=== PATIENT | female | born 1995 | race Two or more races ===

== ENCOUNTER 2016-09-17 18:25 | Inpatient (IN) | payer SELFPAY ==
[~2016-09-17] VITALS: Ht 152.4 cm; Wt 58.1 kg
[~2016-09-17 18:25] MED LIST: IV NORMAL SALINE 1000ML BAG 1,000 ML IV ONE
[2016-09-17 18:52] LABS: BILIRUBIN,URINE NEGATIVE (NEG); GLUCOSE,URINE NEGATIVE (NEG); NITRITE,URINE NEGATIVE (NEG); PH,URINE 5.5; PROTEIN,URINE 30 mg/dL (NEG-TRACE); UROBILINOGEN,URINE 0.2 mg/dL (0.2 mg/dL)
[2016-09-17] MEDS ORDERED: IOHEXOL 300 MG/ML 75 ML VIAL IV ONE (19:00)
[2016-09-17] MEDS ORDERED: ONDANSETRON PF 4 MG/2 ML VIAL. IV ONE (19:15)
[2016-09-17] MEDS ORDERED: CONTRAST GIVEN MC PRN (19:15)
[2016-09-17] MEDS ORDERED: KETOROLAC 15 MG/ML VIAL. IV ONE (19:15)
[2016-09-17] MEDS ORDERED: IV NORMAL SALINE 1000ML BAG 1,000 ML IV ONE (19:15)
[2016-09-17 19:20] LABS: BASO % 0 % (0-3); EOS % 1 % (0-3); HEMATOCRIT 36.9 % (36.0-47.0); HEMOGLOBIN 12.4 g/dL (12.0-15.5); LYMPH # 2.4 x10^3/uL (1.0-4.8); LYMPH % 18 % (24-48); MEAN CORPUSCULAR HEMOGLOBIN 30 pg (25-35); MEAN CORPUSCULAR HGB CONC 34 g/dL (31-37); MEAN CORPUSCULAR VOLUME 90 fL (79-100); MONO % 7 % (0-9); NEUT % 73 % (31-73); PLATELET COUNT 289 x10^3/uL (140-400); RED BLOOD COUNT 4.12 x10^6/uL (3.50-5.40); RED CELL DISTRIBUTION WIDTH 12.9 % (11.5-14.5); WHITE BLOOD COUNT 13.4 x10^3/uL (4.0-11.0)
[2016-09-17 19:22] LABS: BACTERIA,URINE FEW /HPF (0-FEW); RBC,URINE TNTC /HPF (0-2); SQUAMOUS EPITHELIAL CELL,UR FEW /LPF
[2016-09-17 19:33] LABS: CALCIUM 9.2 mg/dL (8.5-10.1); CREATININE 0.6 mg/dL (0.6-1.0); GFR 127.5; POTASSIUM 3.9 mmol/L (3.5-5.1)
[2016-09-17 19:39] LABS: ALBUMIN 4.4 g/dL (3.4-5.0); ALBUMIN/GLOBULIN RATIO 1.6 (1.0-1.7); TOTAL BILIRUBIN 0.3 mg/dL (0.2-1.0); TOTAL PROTEIN 7.2 g/dL (6.4-8.2)
[2016-09-17] MEDS ORDERED: ALTEPLASE 2 MG VIAL INT CAT ONE (20:00)
[2016-09-17] MEDS ORDERED: HEPARIN SODIUM 5,000 UNIT in IV NORMAL SALINE 500ML BAG 500 ML IRR ONE (20:00)
--- NOTE | 2016-09-17 20:19 | RAD ---
OB ultrasound dated 09/17/2016. No comparison available. Clinical indication: Right lower quadrant pain for 3 weeks increasing today. Bleeding. FINDINGS: Transabdominal and transvaginal imaging performed. Uterus measures 8.7 x 5.5 x 4.6 cm. No gestational sac, pole or yolk sac at this time. Endometrial complex is within normal limits in thickness measuring up to 4 mm. There is a hyperechoic mass at the right adnexa that appears to be separate from the right ovary that measures up to 3.9 cm in size. This shows some internal color flow and peripheral color flow. The right ovary measures 2.9 x 2.9 x 1.9 cm. The left ovary measures 2.6 x 2.1 x 2.7 cm. No left adnexal mass. There is a moderate amount of free fluid in the pelvis. IMPRESSION: 1. No evidence of gestational sac or pole within the endometrial canal. 2. Complex somewhat hypervascular mass at the right adnexa, separate from the right ovary with associated moderate amount of free fluid. If there is positive hCG values, this could represent an ectopic . Recommend clinical correlation 3. Normal sonographic appearance of the ovaries. Results discussed with ER physician at approximately 8:15 PM on the day of the exam. Electronically signed by: Lorenzo Telles MD (09/17/2016 8:16 PM) [id number]
[2016-09-17] MEDS ORDERED: ONDANSETRON PF 4 MG/2 ML VIAL. IV PRN ×2 (20:30→22:00)
[2016-09-17] MEDS ORDERED: IV NORMAL SALINE 1000ML BAG 1,000 ML IV SCH (20:30)
[2016-09-17] MEDS: fentaNYL PF VIAL 100 MCG/2 ML VIAL IV PRN ×2 (20:38→22:58)
--- NOTE | 2016-09-17 21:04 | PHYS DOC ---
Past Medical History Past Medical History: No Pertinent History Past Surgical History: No Surgical History Alcohol Use: None Drug Use: None Adult General Chief Complaint Chief Complaint: ABDOMINAL PAIN HPI HPI Patient is a 20 year old female who presents here today complaining of feeling sick for approximately 3 weeks. Patient reports that she's had vaginal bleeding for approximately 3 weeks now utilizing partially 3 pads per day. Patient has any nausea vomiting or diarrhea. Patient complains of dysuria but no frequency or urgency. Patient has any fevers shakes chills. Patient denies any sore throat or ear pain. Patient has any cough cold or runny nose. Patient is complaining of tenderness and pain to her abdomen Ted right lower quadrant. Patient denies any history of tubal pregnancies in the past. Patient denies any history of hypertension diabetes liver longer kidney problems. Patient has had no surgeries in the past. Patient does not smoke drink or do any drugs. Patient is not allergic to any medications. Patient reports port that her last period started on August 28 however she has been bleeding since. Review of systems: Constitutional: Denies fever or chills Eyes: Denies change in visual acuity, redness, or eye pain HENT: Denies nasal congestion or sore throat All other review systems are negative except as documented in the history of present illness portion. Physical exam: Constitutional: Cachectic appearing no acute distress, non-toxic appearance. HENT: Normocephalic, atraumatic, bilateral external ears normal, oropharynx moist, no oral exudates, nose normal. 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 Neck: Normal range of motion, no tenderness, supple, no stridor Cardiovascular:Heart rate regular rhythm Lungs & Thorax: Bilateral breath sounds clear to auscultation Abdomen: Abdomen soft nontender no rebound or guarding NABS. No Burrell sign, no tenderness to McBurney's point. Patient not present with any signs or symptoms of be consistent with an acute surgical abdomen. Patient does have tenderness to palpation to her right lower quadrant Skin: Warm, dry, no erythema, no rash. Pelvic exam is deferred at this time. Patient does have an ectopic by ultrasound. Patient will be evaluated by PUBLIC HEALTH NURSE. Back: No tenderness, no CVA tenderness. Patient has pain to his lower back or reports this is chronic. Patient has no new tenderness Extremities: No tenderness, no cyanosis, no clubbing, ROM intact, no edema. Neurologic: Alert and oriented X 3, normal motor function, normal sensory function, no focal deficits noted. Psychologic: Affect normal, judgement normal, mood normal. Patient's physical exam is significant for tenderness to palpation her right lower quadrant. Patient's vital signs are stable. Patient's blood pressures remained stable throughout the ED. Patient's abdominal exam has been reevaluated multiple times in the ER and there has been no significant change in the amount of discomfort that she's having. She's ER hospital course was significant for normal labs. Patient's beta hCG was in the 400s. Patient's CBC CMP are all within normal limits. Patient had an ultrasound secondary to her having a positive test. Patient's ultrasound revealed a mass in her right adnexa with a moderate amount of free fluid that was both simple and complex consistent with possible blood. Patient' s mass was approximately 3.9 cm with positive light flow/color flow noted in and around the mass. The mass itself was separate from the ovary. Patient's ultrasound is highly suspicious and concerning for a right ectopic . [id number]: Discussed with Dr. Mendoza he is requested that we obtain the official ultrasound report to verify the radiology techs findings. I have discussed the case with the radiologist and he agrees that the ultrasound is highly suspicious for ectopic . After discussion with Dr. Mendoza he has requested admission for the patient and he will evaluate for likely surgical intervention. a/p 1. Patient's history, physical, ultrasound are consistent with an ectopic . I have discussed the case with Dr. Mendoza and he has requested that we admit the patient to his service and he will evaluate her for surgical intervention. Patient has been typed and crossed for 2 units of blood. Patient currently is stable we will hold off transfusion pending any hemodynamic instability. I discussed the findings with the patient and her mother and they are aware of the need for surgery. Critical care time of 35 minutes reutilized and treatment and management of this patient's ectopic . There is a high chance of hemodynamic instability and given her diagnosis. The patient has been typed and crossed. Patient will continue to be monitored aggressively in the ED. Serial abdominal exams were performed in the ED. Patient has remained stable. Critical care time was 35 minutes exclusive of procedures. Review of Systems Review of Systems Constitutional: Denies fever or chills [] Eyes: Denies change in visual acuity, redness, or eye pain [] HENT: Denies nasal congestion or sore throat [] Respiratory: Denies cough or shortness of breath [] Cardiovascular: No additional information not addressed in HPI [] GI: Denies abdominal pain, nausea, vomiting, bloody stools or diarrhea [] : Denies dysuria or hematuria [] Musculoskeletal: Denies back pain or joint pain [] Integument: Denies rash or skin lesions [] Neurologic: Denies headache, focal weakness or sensory changes [] Endocrine: Denies polyuria or polydipsia [] Current Medications Current Medications Current Medications Medications (Trade) Dose Ordered Sig/Araceli Start Time Stop Time Status Last Admin Dose Admin Alteplase, Recombinant (Cathflo) 4 mg 1X ONCE 09/17/16 20:00 09/17/16 20:07 DC Cefazolin Sodium 1 gm/Sodium Chloride 500 ml @ 500 mls/hr 1X PERIOP ONCE 09/17/16 20:00 09/17/16 20:07 DC Fentanyl Citrate (Fentanyl 2ml Vial) 50 mcg PRN Q1HR PRN 09/17/16 20:30 09/18/16 20:29 09/17/16 20:38 50 MCG Heparin Sodium (Porcine) 5000 unit/Sodium Chloride 505 ml @ 505 mls/hr 1X PERIOP ONCE 09/17/16 20:00 09/17/16 20:07 DC Info (Do NOT chart on this entry -- for MONITORING) 1 each PRN DAILY PRN 09/17/16 19:15 09/19/16 19:14 Cancel Iohexol (Omnipaque 300 Mg/ml) 75 ml 1X ONCE 09/17/16 19:00 09/17/16 19:04 DC Ketorolac Tromethamine (Toradol) 15 mg 1X ONCE 09/17/16 19:15 09/17/16 19:15 DC Ondansetron HCl (Zofran) 4 mg PRN Q8HRS PRN 09/17/16 20:30 09/18/16 20:29 Sodium Chloride 1,000 ml @ 125 mls/hr Q8H 09/17/16 20:30 09/18/16 20:29 09/17/16 20:44 125 MLS/HR Allergies Allergies Allergies Coded Allergies Type Severity Reaction Last Updated Verified No Known Drug Allergies 09/17/16 No Physical Exam Physical Exam Constitutional: Well developed, well nourished, no acute distress, non-toxic appearance. [] HENT: Normocephalic, atraumatic, bilateral external ears normal, oropharynx moist, no oral exudates, nose normal. [] Eyes: PERRLA, EOMI, conjunctiva normal, no discharge. [] Neck: Normal range of motion, no tenderness, supple, no stridor. [] Cardiovascular:Heart rate regular rhythm, no murmur [] Lungs & Thorax: Bilateral breath sounds clear to auscultation [] Abdomen: Bowel sounds normal, soft, no tenderness, no masses, no pulsatile masses. [] Skin: Warm, dry, no erythema, no rash. [] Back: No tenderness, no CVA tenderness. [] Extremities: No tenderness, no cyanosis, no clubbing, ROM intact, no edema. [] Neurologic: Alert and oriented X 3, normal motor function, normal sensory function, no focal deficits noted. [] Psychologic: Affect normal, judgement normal, mood normal. [] Current Patient Data Vital Signs Vital Signs Date Time Temp Pulse Resp B/P (MAP) Pulse Ox O2 Delivery O2 Flow Rate FiO2 09/17/16 20:38 Room Air 09/17/16 18:30 98.0 83 18 99/67 (78) 100 98.0 Lab Values Laboratory Tests Test 09/17/16 17:44 09/17/16 18:45 09/17/16 19:00 09/17/16 19:10 POC Urine HCG, Qualitative Hcg positive (Negative) Urine Collection Type Unknown Urine Color [place] Urine Clarity Cloudy Urine pH 5.5 Urine Specific [place] >=1.030 Urine Protein 30 mg/dL (NEG-TRACE) Urine Glucose (UA) Negative mg/dL (NEG) Urine Ketones (Stick) Trace mg/dL (NEG) Urine Blood Large (NEG) Urine Nitrite Negative (NEG) Urine Bilirubin Negative (NEG) Urine Urobilinogen Dipstick 0.2 mg/dL (0.2 mg/dL) Urine Leukocyte Esterase Small (NEG) Urine RBC Tntc /HPF (0-2) Urine WBC 1-4 /HPF (0-4) Urine Squamous Epithelial Cells Few /LPF Urine Bacteria Few /HPF (0-FEW) Urine Mucus Marked /LPF Maternal Serum HCG Beta Subunit 412 mIU/mL (0-5) H White Blood Count 13.4 x10^3/uL (4.0-11.0) H Red Blood Count 4.12 x10^6/uL (3.50-5.40) Hemoglobin 12.4 g/dL (12.0-15.5) Hematocrit 36.9 % (36.0-47.0) Mean Corpuscular Volume 90 fL (79-100) Mean Corpuscular Hemoglobin 30 pg (25-35) Mean Corpuscular Hemoglobin Concent 34 g/dL (31-37) Red Cell Distribution Width 12.9 % (11.5-14.5) Platelet Count 289 x10^3/uL (140-400) Neutrophils (%) (Auto) 73 % (31-73) Lymphocytes (%) (Auto) 18 % (24-48) L Monocytes (%) (Auto) 7 % (0-9) Eosinophils (%) (Auto) 1 % (0-3) Basophils (%) (Auto) 0 % (0-3) Neutrophils # (Auto) 9.8 x10^3uL (1.8-7.7) H Lymphocytes # (Auto) 2.4 x10^3/uL (1.0-4.8) Monocytes # (Auto) 0.9 x10^3/uL (0.0-1.1) Eosinophils # (Auto) 0.2 x10^3/uL (0.0-0.7) Basophils # (Auto) 0.0 x10^3/uL (0.0-0.2) Sodium Level 142 mmol/L (136-145) Potassium Level 3.9 mmol/L (3.5-5.1) Chloride Level 104 mmol/L (98-107) Carbon Dioxide Level 27 mmol/L (21-32) Anion Gap 11 (6-14) Blood Urea Nitrogen 10 mg/dL (7-20) Creatinine 0.6 mg/dL (0.6-1.0) Estimated GFR (Cockcroft-Gault) 127.5 BUN/Creatinine Ratio 17 (6-20) Glucose Level 97 mg/dL (70-99) Calcium Level 9.2 mg/dL (8.5-10.1) Total Bilirubin 0.3 mg/dL (0.2-1.0) Aspartate Amino Transferase (AST) 20 U/L (15-37) Alanine Aminotransferase (ALT) 25 U/L (14-59) Alkaline Phosphatase 90 U/L (46-116) Total Protein 7.2 g/dL (6.4-8.2) Albumin 4.4 g/dL (3.4-5.0) Albumin/Globulin Ratio 1.6 (1.0-1.7) Lipase 113 U/L (73-393) Laboratory Tests 09/17/16 19:10 Laboratory Tests 09/17/16 19:10 EKG EKG [] Radiology/Procedures Radiology/Procedures [] Course & Med Decision Making Course & Med Decision Making Pertinent Labs and Imaging studies reviewed. (See chart for details) [] Dragon Disclaimer Dragon Disclaimer This electronic medical record was generated, in whole or in part, using a voice recognition dictation system. Departure Departure Impression: Primary Impression: Ectopic Disposition: ADMITTED INPATIENT Admitting Physician: Other Condition: GUARDED Referrals: NO PCP (PCP) MARILEE DOWELL MD Sep 17, 2016 21:03
[2016-09-17] MEDS ORDERED: SEVOFLURANE 31 TO 60 MINUTES. IH ONE (21:47)
[2016-09-17] MEDS ORDERED: NEOSTIGMINE 10 MG/10 ML VIAL. ONE (21:48)
[2016-09-17] MEDS ORDERED: fentaNYL PF VIAL 100 MCG/2 ML VIAL ONE (21:48)
[2016-09-17] MEDS ORDERED: PROPOFOL 20 ML IV ONE (21:49)
[2016-09-17] MEDS ORDERED: GLYCOPYRROLATE 1 MG/5 ML VIAL. ONE (21:49)
[2016-09-17] MEDS ORDERED: MIDAZOLAM HCL/PF 2 MG/2 ML VIAL. ONE (21:49)
[2016-09-17] MEDS ORDERED: LIDOCAINE 2% PF Vial for OR 5 ML VIAL. ONE (21:49)
[2016-09-17] MEDS ORDERED: ONDANSETRON PF 4 MG/2 ML VIAL. ONE (21:49)
[2016-09-17] MEDS ORDERED: DEXAMETHASONE SOD PHOS 20 MG/5 ML VIAL. ONE (21:49)
[2016-09-17] MEDS ORDERED: IV RINGERS,LACTATED 1000ML 1,000 ML IV SCH (22:00)
[2016-09-17] MEDS ORDERED: fentaNYL PF VIAL 100 MCG/2 ML VIAL IV PRN (22:00)
[2016-09-17] MEDS ORDERED: MORPHINE SULFATE 2 MG/ML DISP.SYRIN. IV PRN (22:00)
[2016-09-17] MEDS ORDERED: LIDOCAINE 1% 1 ML SYRINGE. ID PRN (22:00)
[2016-09-17] MEDS ORDERED: PROCHLORPERAZINE 10 MG/2 ML VIAL. IV PRN (22:00)
[2016-09-17] MEDS ORDERED: HYDROmorphone 2 MG/ML VIAL IV PRN (22:00)
--- NOTE | 2016-09-17 22:08 | PDOC1 ---
History and Physical Date of Admission Date of Admission DATE: 09/17/16 TIME: 22:03 Identification/Chief Complaint Chief Complaint abd pain Problems: Source Source: Caregiver, Chart review, Patient History of Present Illness History of Present Illness 20 y/o @ 6 wks presented to ED with c/o severe abd pain and vaginal spotting. Pelvic sono indicated moderate amount fluid in abd with adnexal mass with enhanced blood flow separate from ovary. Past Medical History Cardiovascular: No pertinent hx Pulmonary: No pertinent hx GI: No pertinent hx Heme/Onc: No pertinent hx Hepatobiliary: No pertinent hx Psych: No pertinent hx Past Surgical History Past Surgical History: No pertinent history Social History Smoke: No ALCOHOL: none Drugs: None Current Medications Current Medications Current Medications Sodium Chloride 1,000 ml @ 1,000 mls/hr 1X ONCE IV Last administered on 19:11; Start 09/17/16 at 17:15; Stop 09/17/16 at 18:57; Status DC Ondansetron HCl (Zofran) 4 mg 1X ONCE IV Last administered on 09/17/16 19:11 ; Start 09/17/16 at 19:15; Stop 09/17/16 at 19:16; Status DC Ketorolac Tromethamine (Toradol) 15 mg 1X ONCE IV ; Start 09/17/16 at 19:15; Stop 09/17/16 at 19:15; Status DC Sodium Chloride 1,000 ml @ 1,000 mls/hr 1X ONCE IV ; Start 09/17/16 at 19:15; Stop 09/17/16 at 20:14; Status DC Iohexol (Omnipaque 300 Mg/ml) 75 ml 1X ONCE IV ; Start 09/17/16 at 19:00; Stop 09/17/16 at 19:04; Status DC Info (Do NOT chart on this entry -- for MONITORING) 1 each PRN DAILY PRN MC SEE COMMENTS; Start 09/17/16 at 19:15; Stop 09/19/16 at 19:14; Status Cancel Heparin Sodium (Porcine) 5000 unit/Sodium Chloride 505 ml @ 505 mls/hr 1X PERIOP ONCE IRR ; Start 09/17/16 at 20:00; Stop 09/17/16 at 20:07; Status DC Cefazolin Sodium 1 gm/Sodium Chloride 500 ml @ 500 mls/hr 1X PERIOP ONCE IRR ; Start 09/17/16 at 20:00; Stop 09/17/16 at 20:07; Status DC Alteplase, Recombinant (Cathflo) 4 mg 1X ONCE INT CAT ; Start 09/17/16 at 20:00 ; Stop 09/17/16 at 20:07; Status DC Ondansetron HCl (Zofran) 4 mg PRN Q8HRS PRN IV NAUSEA/VOMITING; Start 09/17/16 at 20:30; Stop 09/18/16 at 20:29 Fentanyl Citrate (Fentanyl 2ml Vial) 50 mcg PRN Q1HR PRN IV PAIN Last administered on 09/17/16t 20:38; Start 09/17/16 at 20:30; Stop 09/18/16 at 20:29 Sodium Chloride 1,000 ml @ 125 mls/hr Q8H IV Last administered on 09/17/16 20 :44; Start 09/17/16 at 20:30; Stop 09/18/16 at 20:29 Sevoflurane (Ultane) 30 ml STK-MED ONCE IH ; Start 09/17/16 at 21:47; Stop 09/17 at 21:50; Status DC Neostigmine Methylsulfate (Bloxiverz) 10 mg STK-MED ONCE .ROUTE ; Start at 21:48; Stop 09/17/16 at 21:50; Status DC Fentanyl Citrate (Fentanyl 2ml Vial) 100 mcg STK-MED ONCE .ROUTE ; Start at 21:48; Stop 09/17/16 at 21:50; Status DC Midazolam HCl (Versed) 2 mg STK-MED ONCE .ROUTE ; Start 09/17/16 at 21:49; Stop 09/17/16 at 21:50; Status DC Glycopyrrolate (Robinul) 1 mg STK-MED ONCE .ROUTE ; Start 09/17/16 at 21:49; Stop 09/17/16 at 21:50; Status DC Ondansetron HCl (Zofran) 4 mg STK-MED ONCE .ROUTE ; Start 09/17/16 at 21:49; Stop 09/17/16 at 21:50; Status DC Lidocaine HCl (Lidocaine Pf 2% Vial) 5 ml STK-MED ONCE .ROUTE ; Start 09/17/16 at 21:49; Stop 09/17/16 at 21:50; Status DC Propofol 20 ml @ As Directed STK-MED ONCE IV ; Start 09/17/16 at 21:49; Stop 12/24 at 21:50; Status DC Dexamethasone Sodium Phosphate (Decadron) 20 mg STK-MED ONCE .ROUTE ; Start 12/24 at 21:49; Stop 09/17/16 at 21:50; Status DC Ondansetron HCl (Zofran) 4 mg PRN Q6HRS PRN IV NAUSEA/VOMITING; Start 09/17/16 at 22:00; Stop 09/18/16 at 21:59 Fentanyl Citrate (Fentanyl 2ml Vial) 25 mcg PRN Q5MIN PRN IV MILD PAIN; Start 09/17/16 at 22:00; Stop 09/18/16 at 21:59 Fentanyl Citrate (Fentanyl 2ml Vial) 50 mcg PRN Q5MIN PRN IV MODERATE PAIN; Start 09/17/16 at 22:00; Stop 09/18/16 at 21:59 Morphine Sulfate 1 mg PRN Q10MIN PRN IV SEVERE PAIN; Start 09/17/16 at 22:00; Stop 09/18/16 at 21:59 Ringer's Solution 1,000 ml @ 30 mls/hr Q24H IV ; Start 09/17/16 at 22:00; Stop 09/18/16 at 21:59 Lidocaine HCl 2 ml PRN 1X PRN ID PRIOR TO IV START; Start 09/17/16 at 22:00; Stop 09/18/16 at 21:59 Hydromorphone HCl (Dilaudid) 0.5 mg PRN Q10MIN PRN IV SEV PAIN, Second choice; Start 09/17/16 at 22:00; Stop 09/18/16 at 21:59 Prochlorperazine Edisylate (Compazine) 5 mg PACU PRN PRN IV NAUSEA, MRX1; Start 09/17/16 at 22:00; Stop 09/18/16 at 21:59 Allergies Allergies: Coded Allergies: No Known Drug Allergies (Unverified , 09/17/16) ROS General: YES: Appetite, No: Chills, Night Sweats, Fatigue, Malaise, Other PSYCHOLOGICAL ROS: YES: Anxiety, No: Behavioral Disorder, Concentration difficultie, Decreased libido, Depression, Disorientation, Hallucinations, Hostility, Irritablity, Memory difficulties, Mood Swings, Obsessive thoughts, Physical abuse, Sexual abuse, Sleep disturbances, Suicidal ideation, Other Eyes: No Blurry vision, No Decreased vision, No Double vision, No Dry eyes, No Excessive tearing, No Eye Pain, No Itchy Eyes, No Loss of vision, No Photophobia , No Scotomata, No Uses contacts, No Uses glasses, No Other HEENT: No: Heacaches, Visual Changes, Hearing change, Nasal congestion, Nasal discharge, Oral lesions, Sinus pain, Sore Throat, Epistaxis, Sneezing, Snoring, Tinnitus, Vertigo, Vocal changes, Other ALLERGY AND IMMUNOLOGY: No: Hives, Insect Bite Sensitivity, Itchy/Watery Eyes, Nasal Congestion, Post Nasal Drip, Seasonal Allergies, Other Hematological and Lymphatic: No: Bleeding Problems, Blood Clots, Blood Transfusions, Brusing, Night Sweats, Pallor, Swollen Lymph Nodes, Other ENDOCRINE: No: Breast Changes, Galactorrhea, Hair Pattern Changes, Hot Flashes , Malaise/lethargy, Mood Swings, Palpitations, Polydipsia/polyuria, Skin Changes , Temperature Intolerance, Unexpected Weight Changes, Other Breast: No New/Changing Breast Lumps, No Nipple changes, No Nipple discharge, No Other Respiratory: No: Cough, Hemoptysis, Orthopnea, Pleuritic Pain, Shortness of breath, SOB with excertion, Sputum Changes, Stridor, Tachypnea, Wheezing, Other Cardiovascular: No Chest Pain, No Palpitations, No Orthopnea, No Paroxysmal Noc. Dyspnea, No Edema, No Lt Headedness, No Other Gastrointestinal: Yes Nausea, Yes Abdominal Pain, No Vomiting, No Diarrhea, No Constipation, No Melena, No Hematochezia, No Other Genitourinary: No Dysuria, No Frequency, No Incontinence, No Hematuria, No Retention, No Discharge, No Urgency, No Pain, No Flank Pain, No Other, No , No , No , No , No , No , No Musculoskeletal: No Gait Disturbance, No Joint Pain, No Joint Stiffness, No Joint Swelling, No Muscle Pain, No Muscular Weakness, No Pain In:, No Swelling In:, No Other Neurological: No Behavorial Changes, No Bowel/Bladder ControlChng, No Confusion , No Dizziness, No Gait Disturbance, No Headaches, No Impaired Coord/balance, No Memory Loss, No Numbness/Tingling, No Seizures, No Speech Problems, No Tremors, No Visual Changes, No Weakness, No Other Physical Exam General: Alert, Oriented X3, Cooperative HEENT: Atraumatic Lungs: Clear to auscultation Heart: S1S2 Abdomen: Soft, No masses, Other (severe tenderness with gaurding) PELVIC: Other (deferred) Psych/Mental Status: Mental status NL Vitals Vitals Vital Signs Date Time Temp Pulse Resp B/P (MAP) Pulse Ox O2 Delivery O2 Flow Rate FiO2 09/17/16 21:04 93 106/61 (76) 99 Room Air 09/17/16 18:30 98.0 18 98.0 Labs Labs Laboratory Tests Test 09/17/16 17:44 09/17/16 18:45 09/17/16 19:00 09/17/16 19:10 Bedside Urine HCG, Qualitative Hcg positive (Negative) Urine Collection Type Unknown Urine Color [place] Urine Clarity Cloudy Urine pH 5.5 Urine Specific [place] >=1.030 Urine Protein 30 mg/dL (NEG-TRACE) Urine Glucose (UA) Negative mg/dL (NEG) Urine Ketones (Stick) Trace mg/dL (NEG) Urine Blood Large (NEG) Urine Nitrite Negative (NEG) Urine Bilirubin Negative (NEG) Urine Urobilinogen Dipstick 0.2 mg/dL (0.2 mg/dL) Urine Leukocyte Esterase Small (NEG) Urine RBC Tntc /HPF (0-2) Urine WBC 1-4 /HPF (0-4) Urine Squamous Epithelial Cells Few /LPF Urine Bacteria Few /HPF (0-FEW) Urine Mucus Marked /LPF Maternal Serum HCG Beta Subunit 412 mIU/mL (0-5) White Blood Count 13.4 x10^3/uL (4.0-11.0) Red Blood Count 4.12 x10^6/uL (3.50-5.40) Hemoglobin 12.4 g/dL (12.0-15.5) Hematocrit 36.9 % (36.0-47.0) Mean Corpuscular Volume 90 fL (79-100) Mean Corpuscular Hemoglobin 30 pg (25-35) Mean Corpuscular Hemoglobin Concent 34 g/dL (31-37) Red Cell Distribution Width 12.9 % (11.5-14.5) Platelet Count 289 x10^3/uL (140-400) Neutrophils (%) (Auto) 73 % (31-73) Lymphocytes (%) (Auto) 18 % (24-48) Monocytes (%) (Auto) 7 % (0-9) Eosinophils (%) (Auto) 1 % (0-3) Basophils (%) (Auto) 0 % (0-3) Neutrophils # (Auto) 9.8 x10^3uL (1.8-7.7) Lymphocytes # (Auto) 2.4 x10^3/uL (1.0-4.8) Monocytes # (Auto) 0.9 x10^3/uL (0.0-1.1) Eosinophils # (Auto) 0.2 x10^3/uL (0.0-0.7) Basophils # (Auto) 0.0 x10^3/uL (0.0-0.2) Sodium Level 142 mmol/L (136-145) Potassium Level 3.9 mmol/L (3.5-5.1) Chloride Level 104 mmol/L (98-107) Carbon Dioxide Level 27 mmol/L (21-32) Anion Gap 11 (6-14) Blood Urea Nitrogen 10 mg/dL (7-20) Creatinine 0.6 mg/dL (0.6-1.0) Estimated GFR (Cockcroft-Gault) 127.5 BUN/Creatinine Ratio 17 (6-20) Glucose Level 97 mg/dL (70-99) Calcium Level 9.2 mg/dL (8.5-10.1) Total Bilirubin 0.3 mg/dL (0.2-1.0) Aspartate Amino Transf (AST/SGOT) 20 U/L (15-37) Alanine Aminotransferase (ALT/SGPT) 25 U/L (14-59) Alkaline Phosphatase 90 U/L (46-116) Total Protein 7.2 g/dL (6.4-8.2) Albumin 4.4 g/dL (3.4-5.0) Albumin/Globulin Ratio 1.6 (1.0-1.7) Lipase 113 U/L (73-393) Laboratory Tests Test 09/17/16 17:44 09/17/16 18:45 09/17/16 19:00 09/17/16 19:10 Bedside Urine HCG, Qualitative Hcg positive (Negative) Urine Collection Type Unknown Urine Color [place] Urine Clarity Cloudy Urine pH 5.5 Urine Specific [place] >=1.030 Urine Protein 30 mg/dL (NEG-TRACE) Urine Glucose (UA) Negative mg/dL (NEG) Urine Ketones (Stick) Trace mg/dL (NEG) Urine Blood Large (NEG) Urine Nitrite Negative (NEG) Urine Bilirubin Negative (NEG) Urine Urobilinogen Dipstick 0.2 mg/dL (0.2 mg/dL) Urine Leukocyte Esterase Small (NEG) Urine RBC Tntc /HPF (0-2) Urine WBC 1-4 /HPF (0-4) Urine Squamous Epithelial Cells Few /LPF Urine Bacteria Few /HPF (0-FEW) Urine Mucus Marked /LPF Maternal Serum HCG Beta Subunit 412 mIU/mL (0-5) White Blood Count 13.4 x10^3/uL (4.0-11.0) Red Blood Count 4.12 x10^6/uL (3.50-5.40) Hemoglobin 12.4 g/dL (12.0-15.5) Hematocrit 36.9 % (36.0-47.0) Mean Corpuscular Volume 90 fL (79-100) Mean Corpuscular Hemoglobin 30 pg (25-35) Mean Corpuscular Hemoglobin Concent 34 g/dL (31-37) Red Cell Distribution Width 12.9 % (11.5-14.5) Platelet Count 289 x10^3/uL (140-400) Neutrophils (%) (Auto) 73 % (31-73) Lymphocytes (%) (Auto) 18 % (24-48) Monocytes (%) (Auto) 7 % (0-9) Eosinophils (%) (Auto) 1 % (0-3) Basophils (%) (Auto) 0 % (0-3) Neutrophils # (Auto) 9.8 x10^3uL (1.8-7.7) Lymphocytes # (Auto) 2.4 x10^3/uL (1.0-4.8) Monocytes # (Auto) 0.9 x10^3/uL (0.0-1.1) Eosinophils # (Auto) 0.2 x10^3/uL (0.0-0.7) Basophils # (Auto) 0.0 x10^3/uL (0.0-0.2) Sodium Level 142 mmol/L (136-145) Potassium Level 3.9 mmol/L (3.5-5.1) Chloride Level 104 mmol/L (98-107) Carbon Dioxide Level 27 mmol/L (21-32) Anion Gap 11 (6-14) Blood Urea Nitrogen 10 mg/dL (7-20) Creatinine 0.6 mg/dL (0.6-1.0) Estimated GFR (Cockcroft-Gault) 127.5 BUN/Creatinine Ratio 17 (6-20) Glucose Level 97 mg/dL (70-99) Calcium Level 9.2 mg/dL (8.5-10.1) Total Bilirubin 0.3 mg/dL (0.2-1.0) Aspartate Amino Transf (AST/SGOT) 20 U/L (15-37) Alanine Aminotransferase (ALT/SGPT) 25 U/L (14-59) Alkaline Phosphatase 90 U/L (46-116) Total Protein 7.2 g/dL (6.4-8.2) Albumin 4.4 g/dL (3.4-5.0) Albumin/Globulin Ratio 1.6 (1.0-1.7) Lipase 113 U/L (73-393) VTE Prophylaxis Ordered VTE Prophylaxis Devices: Yes VTE Pharmacological Prophylaxi: No Assessment/Plan Assessment/Plan A: Ruptured ectopic P: Plan for LPSC unilateral SO with possible open laparotomy for evacuation of ectopic . STEFANIE CARPENTER Jr, MD Sep 17, 2016 22:08
[2016-09-17] MEDS ORDERED: BUPIVAC MPF-EPI 0.5%-1:200000 30 ML VIAL. ONE (22:23)
[2016-09-17] MEDS ORDERED: SURGICEL HEMOSTAT 4X8 EACH. ONE (22:23)
[2016-09-17] MEDS ORDERED: KETOROLAC 30 MG/ML INJ FOR OR. INJ ONE (23:44)
--- NOTE | 2016-09-18 00:22 | PDOC ---
BRIEF OPERATIVE NOTE Pre-Op Diagnosis Ruptured Ectopic Post-Op Diagnosis Ruptured Right Ectopic Procedure Performed [facility] Right Salpingectomy Surgeon Dr. Mendoza Anesthesia Type: General Blood Loss 200 ml ( mostly blood clot in abdomen) Specimens Obtained right fallopian tube with ectopic Findings nml uterus, nml Left fallopian tube and ovary, nml right ovary; Right fallopian tube with ectopic ; 200 ml blood clot Complications none STEFANIE MENDOZA Jr, MD Sep 18, 2016 00:22
[2016-09-18] MEDS ORDERED: diphenhydrAMINE 50 MG/ML VIAL IV PRN (00:30)
[2016-09-18] MEDS ORDERED: 0.9 % SODIUM CHLORIDE 10 ML DISP.SYRIN. IV PRN (00:30)
[2016-09-18] MEDS ORDERED: DEXTROSE 50% 25 GM / 50ML DISP.SYRIN. IV PRN (00:30)
[2016-09-18] MEDS ORDERED: KETOROLAC TROMETHAMINE 30 MG/ML INJ. IV PRN (00:30)
[2016-09-18] MEDS ORDERED: PROCHLORPERAZINE 10 MG/2 ML VIAL. IV PRN (00:30)
[2016-09-18] MEDS ORDERED: diphenhydrAMINE HCL 25 MG CAPSULE PO PRN (00:30)
[2016-09-18] MEDS ORDERED: SIMETHICONE 80 MG TAB.CHEW PO PRN (00:30)
[2016-09-18] MEDS ORDERED: ONDANSETRON PF 4 MG/2 ML VIAL. IV PRN (00:30)
[2016-09-18] MEDS ORDERED: ZOLPIDEM 5 MG TABLET. PO PRN (00:30)
[2016-09-18] MEDS ORDERED: CALCIUM CARBONATE 500 MG TAB.CHEW PO PRN (00:30)
[2016-09-18] MEDS ORDERED: fentaNYL PF VIAL 100 MCG/2 ML VIAL ONE (00:42)
[2016-09-18] MEDS: fentaNYL PF VIAL 100 MCG/2 ML VIAL IV PRN ×2 (00:44→00:57)
--- NOTE | 2016-09-18 01:22 | OP ---
DATE OF SURGERY: PREOPERATIVE DIAGNOSIS: Ruptured ectopic . POSTOPERATIVE DIAGNOSIS: Ruptured right ectopic . PROCEDURE: Laparoscopic right salpingectomy. SURGEON: Yasmani Mendoza MD ANESTHESIA: GETA. ESTIMATED BLOOD LOSS: mL. COMPLICATIONS: None. FINDINGS: Normal size uterus. Normal left fallopian tube and ovary with some mild filmy adhesions, normal right ovary. Right fallopian tube with ectopic in about 200 mL blood clot in the abdomen. COMPLICATIONS: None. SUMMARY: A 20-year-old 2, para 1 at about 7 weeks' gestation, presented to Emergency Department severe abdominal pain and vaginal bleeding. The patient was diagnosed with ruptured ectopic . She was counseled on risks, benefits, and expectations of laparoscopic evacuation of ectopic plus possible salpingectomy, salpingo-oophorectomy, or open laparotomy. DESCRIPTION OF PROCEDURE: The patient was taken to surgery suite and placed in dorsal lithotomy position. She was prepped with Betadine solution for vaginal prep and ChloraPrep for abdominal prep. After adequate anesthesia, bivalve speculum was placed vaginally. Anterior lip of the cervix grasped with single tooth tenaculum. Uterine acorn manipulator was then placed. The bivalve speculum was removed. Attention was now placed on abdomen. Small transverse skin incision was made just below the umbilicus. The Veress needle was then placed through the infraumbilical incision site. The abdomen was allowed to insufflate up to 1-1/2 liters CO2 gas. The Veress needle was then removed, 5 mm trocar was placed. The scope was positioned uterus appeared normal size. Left fallopian tube and ovary appeared normal with filmy adhesions. Right ovary appeared normal. Right fallopian tube was identified with the ectopic . There was about 200 mL blood clot in the abdomen as well. Two incisions in the left lower quadrant in which an 11 mm port and 5 mm port were placed. With aid of graspers and the EnSeal device, the distal part of the right fallopian tube was removed including the ectopic . The adnexa was hemostatic. The right fallopian tube containing the ectopic was removed. Suction irrigation was utilized to clear out all blood clots and to verify good hemostasis. The trocars were then removed under direct visualization. The abdomen was allowed to deflate as much as possible along with mechanical manipulation. The 11 mm port site was closed at the fascial layer using 2-0 Vicryl suture in a [id number] manner. The three skin incisions were closed at the level of the skin using 4-0 Vicryl suture in subcuticular manner. 0.5% Marcaine with epinephrine was injected at each incision site. Uterine acorn manipulator and single tooth tenaculum were removed. The patient tolerated the procedure well and was taken to recovery room in stable condition. Sponge and needle count correct x 3. YASMANI MENDOZA MD DR: YVONNE/chalo JOB#: [id number] / [id number]
[2016-09-18 01:41] VITALS: BP 100/60
[2016-09-18 03:35] VITALS: BP 102/59
[2016-09-18] MEDS: GABAPENTIN 300 MG CAPSULE. PO SCH ×2 (06:11→15:20)
[2016-09-18 08:15] VITALS: BP 103/60
[2016-09-18] MEDS: oxyCODONE/APAP 5/325 1 TAB TABLET PO PRN ×4 (08:37→17:09)
[2016-09-18 12:30] VITALS: BP 87/55
[2016-09-18 17:00] VITALS: BP 96/60
--- NOTE | 2016-09-18 17:53 | PDOC ---
SURGICAL PROGRESS NOTE Subjective Pt. feeling well. Pt. tolerating regular diet, ambulating and voiding without difficulty. Vital Signs Vital Signs Date Time Temp Pulse Resp B/P (MAP) Pulse Ox O2 Delivery O2 Flow Rate FiO2 09/18/16 17:00 99.7 79 18 96/60 (72) 98 Room Air 99.7 09/18/16 08:15 10.0 I&O Intake and Output 09/18/16 07:00 Intake Total 1000 ml Balance 1000 ml IV Total 1000 ml PATIENT HAS A MARMOLEJO: No General: Alert, Oriented X3, Cooperative HEENT: Atraumatic Lungs: Clear to auscultation Heart: Regular rate Abdomen: Normal bowel sounds, Soft, No tenderness, Other (INcision sites: intact) Extremities: No edema Psych/Mental Status: Mental status NL Labs Laboratory Tests Test 09/17/16 17:44 09/17/16 18:45 09/17/16 19:00 09/17/16 19:10 Bedside Urine HCG, Qualitative Hcg positive (Negative) Urine Collection Type Unknown Urine Color [place] Urine Clarity Cloudy Urine pH 5.5 Urine Specific [place] >=1.030 Urine Protein 30 mg/dL (NEG-TRACE) Urine Glucose (UA) Negative mg/dL (NEG) Urine Ketones (Stick) Trace mg/dL (NEG) Urine Blood Large (NEG) Urine Nitrite Negative (NEG) Urine Bilirubin Negative (NEG) Urine Urobilinogen Dipstick 0.2 mg/dL (0.2 mg/dL) Urine Leukocyte Esterase Small (NEG) Urine RBC Tntc /HPF (0-2) Urine WBC 1-4 /HPF (0-4) Urine Squamous Epithelial Cells Few /LPF Urine Bacteria Few /HPF (0-FEW) Urine Mucus Marked /LPF Maternal Serum HCG Beta Subunit 412 mIU/mL (0-5) White Blood Count 13.4 x10^3/uL (4.0-11.0) Red Blood Count 4.12 x10^6/uL (3.50-5.40) Hemoglobin 12.4 g/dL (12.0-15.5) Hematocrit 36.9 % (36.0-47.0) Mean Corpuscular Volume 90 fL (79-100) Mean Corpuscular Hemoglobin 30 pg (25-35) Mean Corpuscular Hemoglobin Concent 34 g/dL (31-37) Red Cell Distribution Width 12.9 % (11.5-14.5) Platelet Count 289 x10^3/uL (140-400) Neutrophils (%) (Auto) 73 % (31-73) Lymphocytes (%) (Auto) 18 % (24-48) Monocytes (%) (Auto) 7 % (0-9) Eosinophils (%) (Auto) 1 % (0-3) Basophils (%) (Auto) 0 % (0-3) Neutrophils # (Auto) 9.8 x10^3uL (1.8-7.7) Lymphocytes # (Auto) 2.4 x10^3/uL (1.0-4.8) Monocytes # (Auto) 0.9 x10^3/uL (0.0-1.1) Eosinophils # (Auto) 0.2 x10^3/uL (0.0-0.7) Basophils # (Auto) 0.0 x10^3/uL (0.0-0.2) Sodium Level 142 mmol/L (136-145) Potassium Level 3.9 mmol/L (3.5-5.1) Chloride Level 104 mmol/L (98-107) Carbon Dioxide Level 27 mmol/L (21-32) Anion Gap 11 (6-14) Blood Urea Nitrogen 10 mg/dL (7-20) Creatinine 0.6 mg/dL (0.6-1.0) Estimated GFR (Cockcroft-Gault) 127.5 BUN/Creatinine Ratio 17 (6-20) Glucose Level 97 mg/dL (70-99) Calcium Level 9.2 mg/dL (8.5-10.1) Total Bilirubin 0.3 mg/dL (0.2-1.0) Aspartate Amino Transf (AST/SGOT) 20 U/L (15-37) Alanine Aminotransferase (ALT/SGPT) 25 U/L (14-59) Alkaline Phosphatase 90 U/L (46-116) Total Protein 7.2 g/dL (6.4-8.2) Albumin 4.4 g/dL (3.4-5.0) Albumin/Globulin Ratio 1.6 (1.0-1.7) Lipase 113 U/L (73-393) Laboratory Tests Test 09/17/16 18:45 09/17/16 19:00 09/17/16 19:10 Urine Collection Type Unknown Urine Color [place] Urine Clarity Cloudy Urine pH 5.5 Urine Specific [place] >=1.030 Urine Protein 30 mg/dL (NEG-TRACE) Urine Glucose (UA) Negative mg/dL (NEG) Urine Ketones (Stick) Trace mg/dL (NEG) Urine Blood Large (NEG) Urine Nitrite Negative (NEG) Urine Bilirubin Negative (NEG) Urine Urobilinogen Dipstick 0.2 mg/dL (0.2 mg/dL) Urine Leukocyte Esterase Small (NEG) Urine RBC Tntc /HPF (0-2) Urine WBC 1-4 /HPF (0-4) Urine Squamous Epithelial Cells Few /LPF Urine Bacteria Few /HPF (0-FEW) Urine Mucus Marked /LPF Maternal Serum HCG Beta Subunit 412 mIU/mL (0-5) White Blood Count 13.4 x10^3/uL (4.0-11.0) Red Blood Count 4.12 x10^6/uL (3.50-5.40) Hemoglobin 12.4 g/dL (12.0-15.5) Hematocrit 36.9 % (36.0-47.0) Mean Corpuscular Volume 90 fL (79-100) Mean Corpuscular Hemoglobin 30 pg (25-35) Mean Corpuscular Hemoglobin Concent 34 g/dL (31-37) Red Cell Distribution Width 12.9 % (11.5-14.5) Platelet Count 289 x10^3/uL (140-400) Neutrophils (%) (Auto) 73 % (31-73) Lymphocytes (%) (Auto) 18 % (24-48) Monocytes (%) (Auto) 7 % (0-9) Eosinophils (%) (Auto) 1 % (0-3) Basophils (%) (Auto) 0 % (0-3) Neutrophils # (Auto) 9.8 x10^3uL (1.8-7.7) Lymphocytes # (Auto) 2.4 x10^3/uL (1.0-4.8) Monocytes # (Auto) 0.9 x10^3/uL (0.0-1.1) Eosinophils # (Auto) 0.2 x10^3/uL (0.0-0.7) Basophils # (Auto) 0.0 x10^3/uL (0.0-0.2) Sodium Level 142 mmol/L (136-145) Potassium Level 3.9 mmol/L (3.5-5.1) Chloride Level 104 mmol/L (98-107) Carbon Dioxide Level 27 mmol/L (21-32) Anion Gap 11 (6-14) Blood Urea Nitrogen 10 mg/dL (7-20) Creatinine 0.6 mg/dL (0.6-1.0) Estimated GFR (Cockcroft-Gault) 127.5 BUN/Creatinine Ratio 17 (6-20) Glucose Level 97 mg/dL (70-99) Calcium Level 9.2 mg/dL (8.5-10.1) Total Bilirubin 0.3 mg/dL (0.2-1.0) Aspartate Amino Transf (AST/SGOT) 20 U/L (15-37) Alanine Aminotransferase (ALT/SGPT) 25 U/L (14-59) Alkaline Phosphatase 90 U/L (46-116) Total Protein 7.2 g/dL (6.4-8.2) Albumin 4.4 g/dL (3.4-5.0) Albumin/Globulin Ratio 1.6 (1.0-1.7) Lipase 113 U/L (73-393) Assessment/Plan A: POD# 0 s/p LPSC Right Salpingectomy P: D/ c home. Problems: STEFANIE CARPENTER Jr, MD Sep 18, 2016 17:53
--- NOTE | 2016-09-18 17:54 | DISCH ---
DISCHARGE INSTRUCTIONS Condition on Discharge Condition on Discharge: Stable Activity After Discharge Activity Instructions for Disc: Activity as tolerated Lifting Instructions after Dis: No heavy lifting Driving Instructions after Dis: Do not drive today Diet after Discharge Diet after Discharge: Regular Contacting the DRMathew after DC Call your doctor for: Concerns you may have Follow-Up Follow up with: Dr. Mendoza in 1 week. STEFANIE MENDOZA Jr, MD Sep 18, 2016 17:54
[2016-09-18] MEDS ORDERED: IBUP-1060 PO (17:55)
[2016-09-18] MEDS ORDERED: OXYC-323 PO (17:55)
== END 2016-09-18 18:58 | disposition home or self-care (01) | DRG 777 ==
LOC: ER 18:25 → 3 NORTH 20:41
PROVIDERS: ADMIT Obstetrics & Gynecology; ATTEND Obstetrics & Gynecology
PROC: 10T24ZZ Resection of Products of Conception, Ectopic, Percutaneous Endoscopic Approach (ICD-10-PCS; principal; 2016-09-18)
PROC: 0UT54ZZ Resection of Right Fallopian Tube, Percutaneous Endoscopic Approach (ICD-10-PCS; 2016-09-18)
DX: O00.10 Tubal pregnancy without intrauterine pregnancy (principal)
CPT/HCPCS: 36415; 76801; 76817; 80053; 81001; 81025; 83690; 84702; 85025; 86850; 86900; 86901; 86920; 87086; 96374; 96375; 96376; A4215; C1782; J0690; J1100; J1885; J2250; J2405; J2704; J2710; J3010; J3490; J7030; J7120; 99285-25; J2001